=== PATIENT | female | born 1955 | race Caucasian/White ===

== ENCOUNTER → 2017-07-25 | Outpatient (CLI) | payer BC ==
--- NOTE | 2017-07-26 14:20 | MM ---
Reason for exam: screening (asymptomatic). Last mammogram was performed 1 year ago. History: Patient is postmenopausal. Physical Findings: A clinical breast exam by your physician is recommended on an annual basis and results should be correlated with mammographic findings. MG Screening Mammo w CAD Bilateral CC and MLO view(s) were taken. Prior study comparison: July 24, 2016, bilateral MG screening mammo w CAD. August 20, 2014, bilateral MG screening mammo w CAD. There are scattered fibroglandular densities. Finding: New equal architectural distortion located 6 cm from the nipple in the middle position of the left breast at 3 o'clock. New finding since July 24, 2016 and August 20, 2014. ASSESSMENT: Incomplete: need additional imaging evaluation, BI-RAD 0 RECOMMENDATION: Special view mammogram of the left breast. If lesion persists on supplemental views, image directed ultrasound is recommended. [facility] will attempt to contact patient to return for supplemental views and ultrasound if indicated.
== END | disposition home or self-care (01) ==
LOC: RADMAMWWP 09:08
PROVIDERS: ATTEND Family Medicine
DX: Z12.31 Encounter for screening mammogram for malignant neoplasm of breast (principal)

== ENCOUNTER → 2017-08-08 | Outpatient (CLI) | payer BC ==
--- NOTE | 2017-08-08 11:20 | MM ---
Reason for exam: additional evaluation requested from abnormal screening. Last mammogram was performed less than 1 month ago. History: Patient is postmenopausal. Physical Findings: Nurse did not find any significant physical abnormalities on exam. MG Work Up Mamm w CAD LT CC and MLO view(s) were taken of the left breast. Prior study comparison: July 25, 2017, bilateral MG screening mammo w CAD. July 24, 2016, bilateral MG screening mammo w CAD. There are scattered fibroglandular densities. There is no discrete abnormality. These results were verbally communicated with the patient and result sheet given to the patient on 08/08/17. ASSESSMENT: Negative, BI-RAD 1 RECOMMENDATION: Return to routine screening mammogram schedule for both breasts.
== END | disposition home or self-care (01) ==
LOC: RADMAMWWP 10:02
PROVIDERS: ATTEND Family Medicine
DX: R92.8 Other abnormal and inconclusive findings on diagnostic imaging of breast (principal)

== ENCOUNTER → 2018-07-30 | Outpatient (CLI) | payer BC ==
--- NOTE | 2018-08-05 09:47 | MM ---
Reason for exam: screening (asymptomatic). Last mammogram was performed 1 year ago. History: Patient is postmenopausal. Physical Findings: A clinical breast exam by your physician is recommended on an annual basis and results should be correlated with mammographic findings. MG Screening Mammo w CAD Bilateral CC and MLO view(s) were taken. Prior study comparison: August 08, 2017, left breast MG work up mamm w CAD LT. July 25, 2017, bilateral MG screening mammo w CAD. There are scattered fibroglandular densities. No significant changes when compared with prior studies. ASSESSMENT: Benign, BI-RAD 2 RECOMMENDATION: Routine screening mammogram of both breasts in 1 year.
== END | disposition home or self-care (01) ==
LOC: RADMAMWWP 06:48
PROVIDERS: ATTEND Family Medicine
DX: Z12.31 Encounter for screening mammogram for malignant neoplasm of breast (principal)
CPT/HCPCS: 77067

== ENCOUNTER → 2021-05-13 | Outpatient (CLI) | payer BC ==
--- NOTE | 2021-05-18 08:28 | MM ---
Reason for exam: screening (asymptomatic). Last mammogram was performed 1 year ago. History: Patient is postmenopausal and history of other cancer. Physical Findings: A clinical breast exam by your physician is recommended on an annual basis and results should be correlated with mammographic findings. MG Screening Mammo w CAD Bilateral CC and MLO view(s) were taken. Prior study comparison: May 06, 2020, bilateral MG screening mammo w CAD. July 30, 2018, bilateral MG screening mammo w CAD. July 25, 2017, bilateral MG screening mammo w CAD. There are scattered fibroglandular densities. No significant changes when compared with prior studies. ASSESSMENT: Benign, BI-RAD 2 RECOMMENDATION: Routine screening mammogram of both breasts in 1 year.
== END | disposition home or self-care (01) ==
LOC: RADMAMWWP 11:41
PROVIDERS: ATTEND Family Medicine
DX: Z12.31 Encounter for screening mammogram for malignant neoplasm of breast (principal)
CPT/HCPCS: 77067

== ENCOUNTER 2022-03-10 10:50 | Day surgery (SDC) | payer MEDICARE ==
[2022-03-09 12:01] VITALS: BMI 29.9
[~2022-03-10 10:50] MED LIST: LACTATED RINGERS 1,000 ML IV SCH
[2022-03-10 11:36] VITALS: RESP 16; TEMP 97.9
[2022-03-10] MEDS ORDERED: LIDOCAINE 1% (10MG/ML) FOR IV START INTRADERMA ONE (11:40)
[2022-03-10] MEDS ORDERED: MIDAZOLAM 2 MG/2 ML VIAL ONE (12:46)
[2022-03-10] MEDS ORDERED: fentaNYL (PF) 50 MCG/ML 2 ML AMP ONE (12:46)
[2022-03-10] MEDS ORDERED: PROPOFOL 10 MG/ML 20 ML VIAL IV ONE (12:46)
--- NOTE | 2022-03-10 13:16 | P.PCN ---
Date of Procedure: 03/10/22 Procedure(s) Performed: BRIEF HISTORY: Patient is a 67-year-old pleasant white female scheduled for an elective colonoscopy as a part of screening for colorectal neoplasia. Her father was diagnosed with colon cancer at age 70. PROCEDURE PERFORMED: Colonoscopy. PREOPERATIVE DIAGNOSIS: Screening for colon cancer and family history of colon cancer. IV sedation per Anesthesia. PROCEDURE: After informed consent was obtained, the patient, was brought into the endoscopy unit. IV sedation was administered by Anesthesia under continuous monitoring. Digital rectal examination was normal. Initially the Olympus CF-160 flexible video colonoscope was then inserted in the rectum, gradually advanced into the cecum without any difficulty. Careful examination was performed as the scope was gradually being withdrawn. Ileocecal valve and the appendiceal orifice were visualized and appeared normal. Prep was excellent. Mucosa of the cecum, ascending colon, transverse colon, descending colon, sigmoid colon, and rectum appeared normal. Retroflexion was performed in the rectum and no lesions were seen. The patient tolerated the procedure well. IMPRESSION: Normal-appearing colon from rectum to cecum with no evidence of colorectal neoplasia. RECOMMENDATIONS: Findings of this examination were discussed with the patient as well as her family. She was advised to have a repeat screening colonoscopy in 5 years from now because of the family history of colon cancer.
[2022-03-10 13:34] VITALS: BP 135/76; PULSE 63
== END 2022-03-10 13:53 | disposition home or self-care (01) ==
LOC: ORWHC2ENDO 10:50
PROVIDERS: ATTEND Internal Medicine Gastroenterology
DX: Z12.11 Encounter for screening for malignant neoplasm of colon (principal); Z86.010 Personal history of colon polyps; Z80.0 Family history of malignant neoplasm of digestive organs; E78.5 Hyperlipidemia, unspecified; Z79.899 Other long term (current) drug therapy
CPT/HCPCS: J2250; J3010; J2704; G0105; 45378

== ENCOUNTER → 2022-05-16 | Outpatient (CLI) | payer MEDICARE ==
--- NOTE | 2022-05-17 13:36 | MM ---
Reason for Exam: Screening (asymptomatic). Last screening mammogram was performed 12 month(s) ago. Patient History: Menarche at age 16. First Full-Term at age 21. Postmenopausal. Other cancer. Risk Values: Sary 5 year model risk: 1.1%. NCI Lifetime model risk: 4.2%. Prior Study Comparison: 07/30/2018 Bilateral Screening Mammogram, [facility]. 05/06/2020 Bilateral Screening Mammogram, [facility]. 05/13/2021 Bilateral Screening Mammogram, [facility]. Tissue Density: There are scattered fibroglandular densities. Findings: Analyzed By CAD. No significant changes when compared with prior studies. No discrete abnormality. Overall Assessment: Negative, BI-RAD 1 Management: Screening Mammogram of both breasts in 1 year. A clinical breast exam by your physician is recommended on an annual basis and results should be correlated with mammographic findings. Electronically signed and approved by: Parminder Hunter M.D. Radiologis
== END | disposition home or self-care (01) ==
LOC: RADMAMWWP 10:48
PROVIDERS: ATTEND Family Medicine
DX: Z12.31 Encounter for screening mammogram for malignant neoplasm of breast (principal)
CPT/HCPCS: 77063; 77067

== ENCOUNTER → 2024-01-18 | Outpatient (CLI) | payer MEDICARE ==
--- NOTE | 2024-01-19 10:19 | CT ---
EXAMINATION TYPE: CT right knee - RONI Protocol CT DLP: 677 mGycm, Automated exposure control for dose reduction was used. DATE OF EXAM: 01/18/2024 2:11 PM COMPARISON: None CLINICAL INDICATION:Female, 68 years old with history of M25.561 RIGHT KNEE PAIN; PHH, pre op roni TECHNIQUE: Axial images were obtained of the CT right knee - RONI Protocol, Additional coronal and sa gittal reformatted images and soft tissue and bone window were obtained for review. Contrast used: mL of , (None if empty) Oral contrast used: (None if empty) FINDINGS: The visualized portion of the hips demonstrate mild osteoarthrosis changes with osteophyte formation of the acetabulum. No acute intrapelvic process. The bony structures of the pelvis are inta ct. The visualized knee demonstrates osteophyte formation of the tibial plateau, the patella and femoral condyles. There is joint space narrowing and subchondral sclerosis in the medial aspect of the knee. No evidence of fracture. Visualized ankle demonstrates multifocal osteoarthrosis changes with osteophyte formation and mild matt int space narrowing. No evidence of fractures. There is a cystic structure in centered around the ovary measuring 46 x 43 mm. IMPRESSION: 1. Severe osteoarthrosis changes of the right knee. 2. Cystic structure in the pelvis possibly within the endometrium. Further evaluation endometrium re commended to exclude underlying malignancy alternatively this could represent dilated endometrium in the setting of cervical stenosis and/or degenerating fibroid change.
== END | disposition home or self-care (01) ==
LOC: RADCTMAIN 12:52
PROVIDERS: ATTEND Orthopaedic Surgery
DX: Z01.818 Encounter for other preprocedural examination (principal); M17.11 Unilateral primary osteoarthritis, right knee; N94.89 Other specified conditions associated with female genital organs and menstrual cycle

== ENCOUNTER → 2024-01-24 | Outpatient (CLI) | payer MEDICARE ==
--- NOTE | 2024-01-25 09:59 | US ---
EXAMINATION TYPE: US pelvic complete DATE OF EXAM: 01/24/2024 COMPARISON: CT CLINICAL INDICATION: Female, 69 years old with history of R93.89 ABNORMAL FINDINGS ON DX IMAGING OF O TH BODY; Pt has no pelvic complaints at this time, pt states recent abnormal CT TECHNIQUE: Transabdominal (TA). Transabdominal sonographic images of the pelvis were acquired. Pt does not want transvaginal exam at this time Date of LMP: age 52 EXAM MEASUREMENTS: Uterus: 11.3 x 5.5 x 7.0 cm Right Ovary: 2.6 x 1.8 x 1.8 cm Left Ovary: 2.4 x 1.0 x 2.5 cm 1. Uterus: Anteverted 2. Endometrium: complex, cystic area within endometrial canal= 5.6 x 3.7 x 5.4 cm, no normal endomet rial tissue visualized 3. Right Ovary: wnl 4. Left Ovary: wnl 5. Bilateral Adnexa: wnl 6. Posterior cul-de-sac: wnl IMPRESSION: 1. Prominent uterus for the patient's age 2. Complex cystic mass in the endometrium. Neoplasm should be strongly considered and further evaluat ion is warranted.
== END | disposition home or self-care (01) ==
LOC: RADUSWWP 16:10
PROVIDERS: ATTEND Family Medicine
DX: N85.8 Other specified noninflammatory disorders of uterus (principal); R93.89 Abnormal findings on diagnostic imaging of other specified body structures
CPT/HCPCS: 76856

== ENCOUNTER → 2024-02-11 | Outpatient (CLI) | payer MEDICARE ==
[2024-02-11 13:09] LABS: African American GFR (CKD) >90 (>60 ml/min/1.73 sqM); Blood Urea Nitrogen 12 mg/dL (7-17); Non-African American GFR(CKD) >90 (>60 ml/min/1.73 sqM)
--- NOTE | 2024-02-14 16:08 | CT ---
EXAMINATION TYPE: CT Chest Abd Pelvis w con CT DLP: 1115.2 mGycm, Automated exposure control for dose reduction was used. DATE OF EXAM: 02/11/2024 3:18 PM COMPARISON: None. CLINICAL INDICATION:Female, 69 years old with history of R19.07 PELVIC MASS; PHH, POSSIBLE ENDOMETRIU M CA. Complex endometrium/cystic mass on ultrasound. No normal endometrial tissue identified by ultra sound. Neoplasm should strongly be considered based on ultrasound recommendation. Technique: CT Chest Abd Pelvis w con; Multiple axial images were obtained. Two-dimensional coronal an d sagittal reconstructions were obtained. Contrast used:100 mL of Isovue 300 with IV Contrast, Oral contrast used: with Oral Contrast Findings: CHEST: LUNGS/ PLEURA: Lung bases are clear. No pleural effusions AIRWAY: Patent and unremarkable. HEART: Size within normal limits. MEDIASTINUM: No gross evidence of adenopathy. VASCULATURE: No aortic aneurysm. MUSCULOSKELETAL: No acute osseous abnormalities. SOFT TISSUES/LYMPH NODES: Unremarkable. LOWER NECK: No significant findings. ABDOMEN: ABDOMEN LIVER: Unremarkable GALLBLADDER AND BILE DUCTS: Unremarkable. PANCREAS: Unremarkable. SPLEEN: Unremarkable. ADRENAL GLANDS: Unremarkable. KIDNEYS AND URETERS: No evidence of hydronephrosis or renal calculus. The ureters are unremarkable. PELVIS BLADDER: Unremarkable REPRODUCTIVE: Low density attenuation is seen within the uterus, likely corresponding to the ultrasou nd finding of complex cyst. Uterus is large for patient's age, but would probably not be considered e nlarged for the under patient. ABDOMEN & PELVIS STOMACH AND BOWEL: Stomach and duodenum are unremarkable. No evidence of bowel obstruction. PERITONEUM: No evidence of pneumoperitoneum or free fluid. VASCULATURE: No evidence of aortic aneurysm. MUSCULOSKELETAL: No acute osseous abnormalities LYMPH NODES: No gross evidence for lymphadenopathy. SOFT TISSUE/ABDOMINAL WALL: Unremarkable IMPRESSION: Abnormal endometrium. Neoplasm should be considered.. Consider [employer] consult. Follow up recommendations for incidental pulmonary nodules are per [employer] or [employer].
== END | disposition home or self-care (01) ==
LOC: RADCTMAIN 11:45
PROVIDERS: ATTEND Obstetrics & Gynecology
DX: Z01.818 Encounter for other preprocedural examination (principal); R93.89 Abnormal findings on diagnostic imaging of other specified body structures; C54.1 Malignant neoplasm of endometrium; R19.07 Generalized intra-abdominal and pelvic swelling, mass and lump
CPT/HCPCS: 82565; 84520; 71260; 74177; 36415; Q9967

== ENCOUNTER → 2024-06-05 | Outpatient (CLI) | payer MEDICARE ==
--- NOTE | 2024-06-09 13:38 | MM ---
Reason for Exam: Screening (asymptomatic). Last screening mammogram was performed 12 month(s) ago. Patient History: Menarche at age 16. First Full-Term at age 21. Postmenopausal. Patient has history of breast feeding. Other cancer. Risk Values: Sary 5 year model risk: 1.1%. NCI Lifetime model risk: 3.8%. Prior Study Comparison: 07/25/2017 Bilateral Screening Mammogram, [facility]. 08/08/2017 Left Diagnostic Mammogram, [facility]. 07/30/2018 Bilateral Screening Mammogram, [facility]. 05/06/2020 Bilateral Screening Mammogram, [facility]. 05/13/2021 Bilateral Screening Mammogram, [facility]. 05/16/2022 Bilateral MG 3D screening mammo w/cad, [facility]. 05/24/2023 Bilateral MG 3D screening mammo w/cad, [facility]. Tissue Density: The breasts are almost entirely fatty. Findings: Analyzed By CAD. Right breast: There is no suspicious group of microcalcifications or new suspicious mass. Left breast: There is no suspicious group of microcalcifications or new suspicious mass. Overall Assessment: Negative, BI-RAD 1 Management: Screening Mammogram of both breasts in [address] [facility] will attempt to contact patient to return for supplemental views and ultrasound if indicated. Patient should continue monthly self-breast exams. A clinical breast exam by your physician is recommended on an annual basis. This exam should not preclude additional follow-up of suspicious palpable abnormalities. Note on Sary scores and lifetime risk: 1. A Sary score greater than 3% is considered moderate risk. If this is the case, consider specialist referral to assess eligibility for a risk reducing agent. 2. If overall lifetime risk for the development of breast cancer is 20% or higher, the patient may qualify for future screening with alternating mammogram and breast MRI. [facility], , 06/09/2024 1:35 PM. Electronically signed and approved by: Noam Dominguez DO
== END | disposition home or self-care (01) ==
LOC: RADMAMWWP 11:32
PROVIDERS: ATTEND Family Medicine
DX: Z12.31 Encounter for screening mammogram for malignant neoplasm of breast
CPT/HCPCS: 77063; 77067